=== PATIENT | male | born 1990 | race Caucasian/White ===

== ENCOUNTER 2019-11-04 08:59 | Emergency (ER) | payer OTHER ==
[2019-11-04] MEDS ORDERED: ONDANSETRON 4 MG/2 ML VIAL IVP STA (09:07)
[2019-11-04] MEDS ORDERED: MORPHINE SULFATE 4 MG/ML SYRINGE IVP STA (09:07)
[2019-11-04 09:11] VITALS: TEMP 98.1
--- NOTE | 2019-11-04 09:13 | ED ---
Fall HPI <Homero Prince - Last Filed: 11/04/19 10:24> - General Source: patient, EMS Mode of arrival: EMS Limitations: physical limitation <Cleve Marques - Last Filed: 11/04/19 10:29> - General Stated Complaint: IHS-FALL Time Seen by Provider: 11/04/19 09:00 - History of Present Illness Initial Comments: This a 29-year-old male presents emergency from via EMS chief complaint of fall. Patient states he is on a ladder attempting to go onto a roof. Patient states that he works for [employer] service company states that the legs of the lateral slid out off the neck causing him to fall on his hands, knee, feet region. Patient states that he has bilateral wrists pain right greater than left and also left ankle pain. Patient had no head injury no loss conscious denies neck, back, abdominal, hip pain. Patient had no prior fractures he is [id number]. Patient was given Toradol by EMS which she states slightly helped his discomfort. (Cleve Marques) - Related Data Allergies Allergy/AdvReac Type Severity Reaction Status Date / Time No Known Allergies Allergy Verified 11/04/19 09:12 Review of Systems ROS Other: All systems not noted in ROS Statement are negative. <Homero Prince - Last Filed: 11/04/19 10:24> ROS Other: All systems not noted in ROS Statement are negative. <Cleve Marques - Last Filed: 11/04/19 10:29> ROS Statement: Those systems with pertinent positive or pertinent negative responses have been documented in the HPI. Past Medical History Past Medical History: No Reported History <Homero Prince - Last Filed: 11/04/19 10:24> General Exam General appearance: alert, in no apparent distress Head exam: Present: atraumatic, normocephalic, normal inspection Eye exam: Present: normal appearance, PERRL, EOMI. Absent: scleral icterus, conjunctival injection, periorbital swelling ENT exam: Present: normal exam, normal oropharynx, mucous membranes moist Neck exam: Present: normal inspection, full ROM. Absent: tenderness, meningismus, lymphadenopathy Respiratory exam: Present: normal lung sounds bilaterally. Absent: respiratory distress, wheezes, rales, rhonchi, stridor Cardiovascular Exam: Present: regular rate, normal rhythm, normal heart sounds. Absent: systolic murmur, diastolic murmur, rubs, gallop, clicks GI/Abdominal exam: Present: soft, normal bowel sounds. Absent: distended, tenderness, guarding, rebound, rigid Extremities exam: Present: other (Right wrist there is an obvious deformity, tenderness with palpation neurovascular intact there is no proximal forearm tenderness no tenderness of the hand. Left wrist there is a small area of swelling over the distal radial region this is tender with palpation, no hand tenderness no proximal forearm or arm tenderness. Left ankle there is mild swelling the lateral malleoli region minimal tenderness neurovascular intact no foot tenderness no proximal tib-fib tenderness) Back exam: Present: full ROM. Absent: tenderness, paraspinal tenderness, vertebral tenderness Neurological exam: Present: alert, oriented X3, CN II-XII intact, reflexes normal. Absent: motor sensory deficit Skin exam: Present: warm, dry, intact, normal color. Absent: rash <Cleve Marques - Last Filed: 11/04/19 10:29> Course <Cleve Marques - Last Filed: 11/04/19 10:29> Vital Signs 11/04/19 11/04/19 11/04/19 09:03 10:00 10:05 Temperature 98.1 F Pulse Rate 103 H 100 100 Respiratory 18 18 16 Rate Blood Pressure 149/118 140/115 145/103 O2 Sat by Pulse 98 96 100 Oximetry 11/04/19 11/04/19 11/04/19 10:10 10:15 10:20 Temperature Pulse Rate 94 97 101 H Respiratory 18 18 18 Rate Blood Pressure 137/101 141/92 122/88 O2 Sat by Pulse 100 100 99 Oximetry 11/04/19 10:25 Temperature Pulse Rate 98 Respiratory 18 Rate Blood Pressure 120/91 O2 Sat by Pulse 99 Oximetry - Reevaluation(s) Reevaluation #1: 11/04/19 09:57 I did discuss case with Dr. Haas on-call orthopedics. He did recommend traction, reduction of the right wrist with a well-padded splint and follow-up in office. (Cleve Marques) Procedures - Orthopedic Fracture Reduction Fracture #1 Consent Obtained: verbal consent Side: right Fracture Reduction Location: radius Analgesia: procedural sedation Technique: direct manipulation Post Reduction X-rays Demonstrate: acceptable reduction Post-Reduction Neuro Exam: intact Post-Reduction Vascular Exam: intact Splint Applied: Yes Patient Tolerated Procedure: well, no complications - Procedural Sedation Procedural Sedation Start Time: 10:00 Procedural Sedation Stop Time: 10:25 Indications: fracture/dislocation reduction ASA Class: I Mallampati Airway Score: 2 Preparation: leather cartridge belt maker applied, pulse oximeter, capnometry used, supplemental O2 applied IV Etomidate Dose (mgs): 60 Complications: none Patient Tolerated Procedure: well, no complications <Homero Prince - Last Filed: 11/04/19 10:24> - Orthopedic Splinting/Casting Injury #1 Side: right Upper Extremity Injury Location: short arm, wrist Upper Extremity Immobilizer: volar splint, synthetic pre-padded splint Injury #2 Side: left Upper Extremity Injury Location: short arm, wrist Upper Extremity Immobilizer: volar splint, synthetic pre-padded splint <Cleve Marques - Last Filed: 11/04/19 10:29> Medical Decision Making <Homero Prince - Last Filed: 11/04/19 10:24> <Cleve Marques - Last Filed: 11/04/19 10:29> - Medical Decision Making Patient was reexamined and reevaluated by myself, Dr. Prince. History and physical done. Patient consents to sedation and reduction. Procedure performed. X-rays reviewed. (Homero Prince) Patient presented from for fall, x-rays of the wrist show bilateral wrist fractures, and the right was reduced in emergency department the case discussed with Dr. Haas. Patient will follow-up in office on Wednesday. Return parameters discussed. (Cleve Marques) Disposition <Homero Prince - Last Filed: 11/04/19 10:24> Is patient prescribed a controlled substance at d/c from ED?: No Time of Disposition: : <Cleve Marques - Last Filed: 11/04/19 10:29> Clinical Impression: Fall, Closed fracture of distal end of right radius, Closed fracture of left distal radius, Left ankle sprain Disposition: HOME SELF-CARE Condition: Stable Additional Instructions: Please return to the Emergency Department if symptoms worsen or any other concerns. Referrals: Antonio Haas MD [STAFF PHYSICIAN] - 1-2 days
--- NOTE | 2019-11-04 09:51 | XR ---
EXAMINATION TYPE: XR ankle complete LT , 3 VIEWS DATE OF EXAM ORDERED: 11/04/2019 HISTORY: fall off ladder, pain. COMPARISON: None. FINDINGS: No fracture, dislocation or other acute osseous lesion is seen. There are both plantar and Achilles calcaneal spurs. IMPRESSION: 1. NO ACUTE OSSEOUS LESION. 2. CALCANEAL SPURS.
--- NOTE | 2019-11-04 09:57 | XR ---
EXAMINATION TYPE: XR wrist complete BILATERAL , 8 VIEWS DATE OF EXAM ORDERED: 11/04/2019 HISTORY: fall off ladder, pain. COMPARISON: None. FINDINGS: On the right there is a comminuted intra-articular fracture of the distal radius. There is truncation of the ulnar styloid on the right. There is some amorphous calcification adjacent to the styloid. I could not exclude a styloid fracture. There is some calcification of the triangular fibroc artilage. On the left there is a comminuted intra-articular fracture distal radius no definite ulnar fracture i s seen. IMPRESSION: BILATERAL, COMMINUTED INTRA-ARTICULAR FRACTURES OF THE DISTAL RADII WITH A QUESTIONABLE FRACTURE OF T HE RIGHT ULNAR STYLOID. CODE A: INITIAL ENCOUNTER FOR CLOSED FRACTURE.
[2019-11-04] MEDS: ETOMIDATE 2 MG/ML 10 ML VIAL IV STA ×2 (10:03→10:04)
[2019-11-04 10:12] VITALS: RESP 18
[2019-11-04] MEDS ORDERED: ACET/COD 300 MG/30 MG STARTER PACK 6 TAB BTL PO STA (10:29)
--- NOTE | 2019-11-04 10:40 | XR ---
EXAMINATION TYPE: XR wrist limited RT , 2 VIEWS DATE OF EXAM ORDERED: 11/04/2019 HISTORY: Postreduction. COMPARISON: Previous study of earlier today. FINDINGS: There has been a reduction of the distal right radial fracture and the arm is immobilized in a fiberglass lap. On this study the ulnar styloid fracture is more clearly evident. There continue s to be a small step in the radiocarpal articulation there continues to be mild to moderate displacem ent of the medial radial fragment. IMPRESSION: PARTIAL REDUCTION OF THE PATIENT'S RADIAL AND ULNAR FRACTURES.
[2019-11-04 10:58] VITALS: BP 132/98; PULSE 99
== END 2019-11-04 11:07 | disposition home or self-care (01) ==
LOC: EC 08:59
DX: S52.501A Unspecified fracture of the lower end of right radius, initial encounter for closed fracture (principal); S93.402A Sprain of unspecified ligament of left ankle, initial encounter; S52.502A Unspecified fracture of the lower end of left radius, initial encounter for closed fracture; Z53.8 Procedure and treatment not carried out for other reasons; W11.XXXA Fall on and from ladder, initial encounter; Y93.89 Activity, other specified; Y92.69 Other specified industrial and construction area as the place of occurrence of the external cause; Y99.0 Civilian activity done for income or pay
CPT/HCPCS: 73110; 73100; 73610; 99284; 25605; 99152; 99153; 96374; J2270

== ENCOUNTER 2019-11-05 14:32 | Emergency (ER) | payer OTHER ==
[2019-11-05 14:43] VITALS: RESP 18; TEMP 98.1
[2019-11-05] MEDS ORDERED: HYDROcodone/APAP 7.5-325MG 1 EACH TAB PO ONE (14:45)
--- NOTE | 2019-11-05 15:58 | ED ---
Upper Extremity HPI - General Chief Complaint: Extremity Injury, Upper Stated Complaint: wrist pain Time Seen by Provider: 11/05/19 14:44 Source: patient, RN notes reviewed Mode of arrival: ambulatory Limitations: no limitations - History of Present Illness Initial Comments: 29-year-old male presents emergency Department with chief complaint of right ortiz nd pain. Patient seen here yesterday had a fall off a ladder, patient has bilateral wrist fracture. Patient had reduction of the right wrist. Patient states that he was sent home without codeine states is on alleviating of the pain. Patient states he has not been moving his hand which makes it feel achy states that it hurts to move his hand. Patient denies any discoloration. He does move his hand looked swollen. Patient denies any other complaints. - Related Data Allergies Allergy/AdvReac Type Severity Reaction Status Date / Time No Known Allergies Allergy Verified 11/05/19 14:43 Review of Systems ROS Statement: Those systems with pertinent positive or pertinent negative responses have been documented in the HPI. ROS Other: All systems not noted in ROS Statement are negative. Past Medical History Past Medical History: No Reported History History of Any Multi-Drug Resistant Organisms: None Reported Additional Past Surgical History / Comment(s): Eye surgery Past Psychological History: No Psychological Hx Reported Smoking Status: Never smoker Past Alcohol Use History: Occasional Past Drug Use History: Marijuana General Exam Limitations: no limitations General appearance: alert, in no apparent distress Head exam: Present: atraumatic, normocephalic, normal inspection Respiratory exam: Present: normal lung sounds bilaterally. Absent: respiratory distress, wheezes, rales, rhonchi, stridor Cardiovascular Exam: Present: regular rate, normal rhythm, normal heart sounds. Absent: systolic murmur, diastolic murmur, rubs, gallop, clicks Extremities exam: Present: other (There is bilateral's restaurant noted, neurovascular intact Refill less than 2 seconds the right splint was unwrapped secondary swelling and complaint of pain. There is no evidence of compartment syndrome.) Course Vital Signs 11/05/19 14:40 Temperature 98.1 F Pulse Rate 101 H Respiratory 18 Rate Blood Pressure 120/74 O2 Sat by Pulse 98 Oximetry Medical Decision Making - Medical Decision Making Patient presented for recheck secondary to pain. There is no concerns for compartment syndrome. I did loosen the wrap, I did advise him that he is do finger movements or squeeze of ball to help improve the swelling. He'll be provided shoulder pain medication he has an appointment to follow-up tomorrow at orthopedics. Disposition Clinical Impression: Closed fracture of distal end of right radius, Right hand pain Disposition: HOME SELF-CARE Condition: Stable Instructions (If sedation given, give patient instructions): Arm Fracture in Adults (ED) Additional Instructions: Please return to the Emergency Department if symptoms worsen or any other concerns. Is patient prescribed a controlled substance at d/c from ED?: No Referrals: None,Stated [Primary Care Provider] - 1-2 days Antonio Haas MD [STAFF PHYSICIAN] - 1-2 days Time of Disposition: 15:58
[2019-11-05] MEDS ORDERED: MORPHINE SULFATE 4 MG/ML SYRINGE IM STA (16:08)
[2019-11-05 16:14] VITALS: PULSE 104
[2019-11-05 16:35] VITALS: BP 139/94
== END 2019-11-05 16:35 | disposition home or self-care (01) ==
LOC: EC 14:32
DX: S52.501A Unspecified fracture of the lower end of right radius, initial encounter for closed fracture (principal); S62.102A Fracture of unspecified carpal bone, left wrist, initial encounter for closed fracture; W11.XXXA Fall on and from ladder, initial encounter; Y92.69 Other specified industrial and construction area as the place of occurrence of the external cause; Y99.0 Civilian activity done for income or pay
CPT/HCPCS: 99283; 96372; J2270

== ENCOUNTER → 2019-11-06 | Outpatient (CLI) | payer OTHER | END | disposition home or self-care (01) | LOC: LABWHC1 12:44 | PROVIDERS: ATTEND Orthopaedic Surgery | DX: M25.531 Pain in right wrist (principal); S93.402A Sprain of unspecified ligament of left ankle, initial encounter; M25.532 Pain in left wrist; M25.572 Pain in left ankle and joints of left foot; E55.9 Vitamin D deficiency, unspecified | CPT/HCPCS: 36415; 82306 ==

== ENCOUNTER → 2019-11-09 | Outpatient (CLI) | payer OTHER ==
--- NOTE | 2019-11-09 09:32 | CT ---
EXAMINATION TYPE: CT wrist RT wo con DATE OF EXAM: 11/09/2019 COMPARISON: Right wrist x-ray 5 days ago. HISTORY: Pain in right wrist, blasted intra-articular distal radial fracture per order. Traumatic fal l injury [address] DLP: 197 mGycm Automated exposure control for dose reduction was used. FINDINGS: Overlying fiberglass cast material is redemonstrated. There are 3 tiny avulsion type fracture fragmen ts from the ulnar styloid. Minus ulnar variance is present similar to prior x-ray study after reducti on. Distal radius redemonstrates comminuted displaced intra-articular fracture through the radial meta-ep iphysis. There are multiple small fracture fragments extending to articular surface best seen near ax ial image 26 with fracture lines extend to the ulnar radial along with dorsal and palmar surfaces wit h small ossific fracture fragments seen within the fracture spaces.Largest remaining intact articular surface measures 1.6 x 1.5 cm along palmar ulnar aspect axial image 26. Carpal joint spaces are maintained. There is no fracture or dislocation at this level. I do see a few tiny bony fragments near distal radial epiphysis sagittal image 18 and coronal image 22 correspondin g to axial image 26. A few additional tiny fragments near the dorsal aspect of scaphoid bone are pres ent near sagittal image 20. IMPRESSION: Significant comminuted displaced intra-articular fracture distal radial meta-epiphysis as detailed above with disruption of distal radial ulnar joint.
== END | disposition home or self-care (01) ==
LOC: RADCTMAIN 07:43
PROVIDERS: ATTEND Orthopaedic Surgery
DX: S52.571A Other intraarticular fracture of lower end of right radius, initial encounter for closed fracture (principal); M25.572 Pain in left ankle and joints of left foot; S93.402A Sprain of unspecified ligament of left ankle, initial encounter

== ENCOUNTER 2019-11-10 10:59 | Day surgery (SDC) | payer OTHER ==
[2019-11-07 16:14] VITALS: BMI 39.5
[~2019-11-10 10:59] MED LIST: DEXAMETHASONE SOD PHOSPHATE 10 MG/ML 1 ML VIAL IV ONE; HYDROmorphone 0.5 MG/0.5 ML SYRINGE IVP PRN; LACTATED RINGERS 1,000 ML IV SCH; MIDAZOLAM 2 MG/2 ML VIAL IV PRN; ONDANSETRON 4 MG/2 ML VIAL IVP ONE; SCOPOLAMINE 1.5MG/72HR PATCH TRANSDERM ONE
[2019-11-10] MEDS ORDERED: LIDOCAINE 1% 20 ML VIAL (10MG/ML) FOR IV START INTRADERMA ONE (11:34)
[2019-11-10] MEDS ORDERED: fentaNYL (PF) 50 MCG/ML 2 ML AMP IV ONE (12:33)
[2019-11-10] MEDS ORDERED: MIDAZOLAM 2 MG/2 ML VIAL ONE (12:36)
[2019-11-10] MEDS ORDERED: ESMOLOL 100 MG/10 ML VIAL ONE (12:36)
[2019-11-10] MEDS ORDERED: fentaNYL (PF) 50 MCG/ML 2 ML AMP ONE (12:36)
[2019-11-10] MEDS ORDERED: ROCURONIUM BROMIDE 10 MG/ML 10 ML VIAL IV ONE (12:36)
[2019-11-10] MEDS ORDERED: METOPROLOL TARTRATE 5 MG/5 ML VIAL IVP ONE (12:36)
[2019-11-10] MEDS ORDERED: PROPOFOL 10 MG/ML 20 ML VIAL IV ONE (12:36)
[2019-11-10] MEDS ORDERED: ROPIVACAINE 5 MG/ML 30 ML VIAL ONE (12:36)
[2019-11-10] MEDS ORDERED: LIDOCAINE 1% INJ 10MG/ML (20 ML MDV) ONE (12:36)
[2019-11-10] MEDS ORDERED: SUCCINYLCHOLINE CHLORIDE 100 MG/5 ML SYR IV ONE (12:36)
--- NOTE | 2019-11-10 13:34 | P.ANPRN ---
Procedure Note - Anesthesia - Nerve Block Performed Right Supraclavicular Single Time Out Performed: Yes (1232) Date of Procedure: 11/10/19 Procedure Start Time: 12:32 Procedure Stop Time: 12:46 Location of Patient: PreOp Indication: Acute Post-Operative Pain, Requested by Surgeon Specifically requested for management of pain by : Ken Stover Sedation Type: Sedate with meaningful contact maintained Preparation: Sterile Prep Position: Supine Catheter: None Needle Types: Pajunk Needle Gauge: 21 Ultrasound used to visualize needle placement: Yes Ultrasound used to observe medication spread: Yes Injectate: 0.5% Ropivacaine (see comment for volume) (30cc) Blood Aspirated: No Pain Paresthesia on Injection Noted: No Resistance on Injection: Normal Image Stored and Saved: Yes Events: Uneventful and Well Tolerated
[2019-11-10] MEDS ORDERED: BUPIVACAINE (PF) 0.5% 30 ML VIAL SQ ONE (16:33)
[2019-11-10] MEDS ORDERED: LIDOCAINE 1%-EPI 1:100,000 20 ML VIAL SQ ONE (16:33)
[2019-11-10] MEDS ORDERED: LACTATED RINGERS 1,000 ML IV ONE ×2 (17:00→17:59)
[2019-11-10] MEDS ORDERED: SODIUM CHLORIDE 0.9% 50 ML with ceFAZolin 2,000 MG IV ONE ×2 (17:17)
[2019-11-10] MEDS ORDERED: ONDANSETRON 4 MG/2 ML VIAL IVP ONE (19:31)
[2019-11-10] MEDS ORDERED: METOCLOPRAMIDE 5 MG/ML 2 ML VIAL IVP ONE (19:40)
[2019-11-10] MEDS ORDERED: PROMETHAZINE INJ 25 MG/ML 1 ML VIAL IVPB ONE (19:48)
[2019-11-10] MEDS ORDERED: LABETALOL 5 MG/ML VIAL MDV IV ONE (20:00)
[2019-11-10] MEDS ORDERED: HYDROmorphone 0.5 MG/0.5 ML SYRINGE IVP ONE (20:01)
[2019-11-10] MEDS ORDERED: hydrALAZINE HCL 20 MG/ML 1 ML VIAL IV ONE (20:08)
[2019-11-10] MEDS: HYDROmorphone 1 MG/ML 1 ML SYRINGE IVP ONE ×2 (20:23→20:33)
[2019-11-11] MEDS ORDERED: HYDROcodone/APAP 7.5-325MG 1 EACH TAB PO PRN (00:02)
[2019-11-11] MEDS: HYDROmorphone 1 MG/ML 1 ML SYRINGE IVP PRN ×2 (01:39→05:28)
[2019-11-11 03:55] VITALS: TEMP 98.3
[2019-11-11 04:25] VITALS: BP 131/75; PULSE 121; RESP 14
--- NOTE | 2019-11-11 20:57 | XR ---
EXAMINATION TYPE: XR wrist complete BILATERAL, [place] guidance operating room DATE OF EXAM: 11/10/2019 COMPARISON: 11/04/2019 HISTORY: 29-year-old male ORIF bilateral distal radial fractures. FINDINGS: Intraoperative fluoroscopy during a lateral distal radial internal fixation with plate and screws on the right and cannulated 3 screws on the left. FLUOROSCOPY Fluoroscopy time of 4 minutes 6 seconds seconds was used during bilateral distal radial ORIF. 10 brown ge/s document/s the procedure. IMPRESSION: Intraoperative fluoroscopy as above.
--- NOTE | 2019-11-13 07:34 | P.OP ---
Date of Procedure: 11/10/19 Preoperative Diagnosis: 1. Displaced intra-articular bilateral distal radius fractures 2. Post-traumatic right carpal tunnel syndrome Postoperative Diagnosis: 1. Displaced intra-articular bilateral distal radius fractures 2. Post-traumatic right carpal tunnel syndrome Procedure(s) Performed: 1. Open reduction and internal fixation of comminuted, intra-articular right distal radius fracture (greater than 3 parts) 2. Open right carpal tunnel release 3. Open reduction and internal fixation of intra-articular left distal radius fracture (greater than 3 parts) Implants: Right: Acumed AcuLoc 2 right standard volar distal radius plate with locking and cortical screws Left: Three Acutrak 2 headless compression screws (2 standard and 1 mini) Anesthesia: TAINA, regional Surgeon: Ken Stover Sales Administration Manager #1: Korina No Estimated Blood Loss (ml): 40 Condition: stable Disposition: PACU Indications for Procedure: The patient is a 29-year-old male who sustained bilateral distal radius after falling from a ladder at work. Treatment options (and their associated risks and benefits) were discussed. The right fracture was markedly displaced, neccessitating operative treatment. While there was some displacement of the left fracture, surgical stabilization was recommended in the setting of bilateral fractures. Additionally, the patient was experiencing paresthesias in the fingers on the right. Carpal tunnel release at the time of fracture fixation was recommended. In preop, additional questions were addressed and the patient wished to proceed with surgery. Consent forms were signed. The operative sites were confirmed and marked. Description of Procedure: The patient was administered a regional nerve block (only on the right) by the anesthesia team and then was brought to the operating suite. He was positioned supine with the right arm on an arm board. All bony prominences were well- padded. Anesthesia and prophylactic IV antibiotics were administered uneventfully. A tourniquet was applied. The right upper extremity was prepped and draped in standard, sterile fashion. A timeout was performed, confirming patient identifiers, the operative side, the sites and the procedures to be performed: all team members expressed agreement. The limb was exsanguinated with an Esmarch and the tourniquet was inflated. Loupe magnification was utilized throughout the case for optimum visualization. An extended carpal tunnel approach was utilized. A midline volar incision was marked, extending obliquely across the volar wrist crease. The skin was incised sharply and subcutaneous tissue were spread. The antebrachial/volar carpal fascia was incised longitudinally. The median nerve was identified. The transverse carpal ligament was sharply released under direct visualization. This was noted to be substantially thickened and the tunnel was very tight. Wide release was achieved. The interval between the ulnar neurovascular bundle and the flexor tendons was bluntly developed. The flexor musculature was moderately edematous. The pronator quadratus was identified. There was a large traumatic transverse rent in the muscle belly with a fracture fragment protruding through it. This was sharply extended along its ulnar border and the muscle was subperiosteally elevated radially. The transitional fiber zone was elevated as well to expose the fracture site. There was a large fragment involving the volar lunate fossa and metaphysis of the intermediate column. There were two small articular fragments radial to this, with very distal fracture lines. The radial styloid was substantially comminuted. A Silver Star was inserted into the metaphyseal fracture. This was cleaned of hematoma and fibrous tissue. The fragment was mobilized, reduced and held with a reduction clamp. Attempted reduction of the radial column proved difficult from this exposure, due to the amount of edema and the patients muscular forearm. Through the same incision, the interval between the FCR and radial artery was developed. The FCR sheath was incised and the tendon was mobilized. The floor of the sheath was released. Perforating vessels were coagulated with bipolar cautery. Finger dissection was used to expose the fracture site. A large pointed reduction clamp was applied to the bone below the sigmoid notch and clamped percutaneously to the larger fragment of the radial styloid. The plate was selected and positioned on the volar radius. It was provisionally pinned in place with K-wires and its position was confirmed on imaging. A cortical screw was drilled, measured and inserted into the oblong hole of the shaft. Residual shortening and dorsal angulation were present, as well as a small articular incongruity. The distal K wires were removed. Using the plate as a reduction tool, the fracture was remanipulated. A Silver Star was inserted between the fracture fragments to elevate the articular surface and the K wires were reinserted. Repeat imaging demonstrated improved alignment in all planes. Distal locking screws were sequentially drilled, measured and inserted, confirming length and trajectory with imaging. An additional cortical screw was drilled and inserted to secure the plate to the shaft proximally. Final x-rays were obtained, which revealed satisfactory reduction of the fracture. The wrist was then ranged under live fluoroscopy - no motion of the fracture fragments or fixation construct was appreciated. The wrist articulated smoothly in flexion, extension and rotation, without clicking or crepitus. The tourniquet was released after 121 minutes at 250 mmHg and was not used for the remainder of the case. Good hemostasis was obtained with manual pressure and electrocautery. The wound was thoroughly irrigated with normal saline. The pronator and tra nsitional fibers were repaired over the plate with interrupted 2-0 Vicryl sutures. The subcutaneous tissues were reapproximated with interrupted 3-0 Vicryl sutures. The incision was closed with interrupted 3-0 and 4-0 nylon sutures. Local anesthetic with epinephrine was injected into the perioperative subcutaneous tissues for adjunctive postoperative pain control and hemostasis. Soft, sterile dressing was applied. Attention was then turned to the left distal radius. The patient was repositioned with the left arm on an arm board. A tourniquet was applied and the left upper extremity was prepped and draped in sterile fashion. The timeout was repeated to confirm the procedure and surgical plan: Unanimous agreement was again confirmed. The limb was exsanguinated with an Esmarch the tourniquet was inflated. The fracture on the left was a long vertical split extending from the articular surface into the metadiaphysis. There was also a small separate radial styloid fragment. There also appeared to be a separate longitudinal fracture in the coronal plane, seen on the lateral view. On the PA view, a small amount of diastasis was noted between the fragments at the articular surface. A small longitudinal incision was made over the fifth dorsal compartment. Spreading dissection proceeded down to the extensor retinaculum and a small longitudinal split was made. The extensor tendons were mobilized and protected. The dorsal ulnar corner of the distal radius was visualized. A large pointed reduction clamp was inserted and positioned below the sigmoid notch (confirmed on imaging). This was applied to the base of the radial styloid through a small incision. Good compression at the fracture site was noted on imaging. The decision was made to proceed with screw fixation. Two small incisions were made along the radial styloid. Spreading dissection was used to expose the bone. Several small vessels and sensory nerve branches were identified. In order to adequately mobilize and protect the structures, the skin bridge between the two wounds was incised to create one exposure. Two guidewires for the headless compression screws were drilled across the fracture, confirming length and trajectory on imaging. The cannulated drill was inserted over the wires and the length was measured. Two standard Acutrak screws were inserted and buried just below the cortical surface. Good purchase was achieved. To provide better compression distally, a guidewire for a mini screw was inserted into the radial styloid fragment and advanced across the vertical split, to the edge of the sigmoid notch. Cannulated drill was again used, checking depth of insertion on imaging. Measuring off the drill, a mini headless compression screw was inserted. The clamp and guidewires were removed. Final images were obtained, which demonstrated good reduction of the fractures. No fracture line was appreciated on the lateral view. The wrist was stressed under live fluoroscopy: There was no appreciable motion at the fracture sites. The wrist articulated smoothly without clicking, popping or crepitus. The wounds were thoroughly irrigated with normal saline. The split in the extensor retinaculum was repaired with 3-0 Vicryl suture. The tourniquet was released after 67 minutes at 250 mmHg. Excellent hemostasis was obtained with manual pressure and electrocautery. The subcutaneous tissues were reapproximated with interrupted 3-0 Vicryl sutures. The dorsal incision was closed with interrupted subcuticular 4-0 Monocryl. The radial incision was closed with a running 4-0 Monocryl subcuticular stitch. Steri-Strips and sterile dressings were applied, followed by a volar plaster short arm splint. A volar plaster splint was also applied to the right wrist as well. All sponge, needle and instrument counts were correct at the end of the case. The patient tolerated the procedure well and was taken to the recovery room in stable condition.
== END 2019-11-11 07:55 ==
LOC: OR 10:59 → 4SSUR 20:32 → OR 11-11 07:55
PROVIDERS: ATTEND Orthopaedic Surgery
DX: S52.571A Other intraarticular fracture of lower end of right radius, initial encounter for closed fracture (principal); S52.572A Other intraarticular fracture of lower end of left radius, initial encounter for closed fracture; G56.01 Carpal tunnel syndrome, right upper limb; S93.402A Sprain of unspecified ligament of left ankle, initial encounter; W11.XXXA Fall on and from ladder, initial encounter; Y92.69 Other specified industrial and construction area as the place of occurrence of the external cause; Y99.0 Civilian activity done for income or pay; Z79.891 Long term (current) use of opiate analgesic
CPT/HCPCS: 64415; 76942; 73110; 25609; 64721; C1713; J2250; J0360; J1100; J2550; J2765; J0690 ×2; J2405; J2001; J3010; J1170 ×3; J2795; J0330; J2704

== ENCOUNTER 2021-01-14 09:11 | Emergency (ER) | payer OTHER ==
[2021-01-14 09:45] VITALS: BP 125/79; PULSE 95; RESP 18; TEMP 97.9
[2021-01-14] MEDS ORDERED: KETOROLAC 15 MG/ML 1 ML VIAL IM STA (10:48)
[2021-01-14] MEDS ORDERED: ORPHENADRINE 30 MG/ML 2 ML VIAL IM STA (10:48)
[2021-01-14] MEDS ORDERED: HYDROmorphone 1 MG/ML 1 ML SYRINGE IVP STA (11:46)
[2021-01-14] MEDS ORDERED: ACET/COD 300 MG/30 MG STARTER PACK 6 TAB BTL PO STA (12:40)
--- NOTE | 2021-01-14 12:41 | ED ---
General Adult HPI - General Chief complaint: Back Pain/Injury Stated complaint: Back Pain Source: patient, family Mode of arrival: ambulatory Limitations: no limitations - History of Present Illness Initial comments: 30-year-old male with a past medical history of asthma presents to the emergency room for a chief complaint of neck pain. Patient presents for back pain 5 days. Please send states this started when he was at work. States he works for [employer] and was lifting heavy objects. Patient states it is not to be getting better. Patient has been taking Motrin and Tylenol without relief. Patient reports he did have a CAT scan done at another facility which was unremarkable. Patient denies any bladder or bowel changes, weakness of the lower extremities, numbness or tingling of the lower extremities, saddle anesthesia, or fevers. - Related Data Home Medications Medication Instructions Recorded Confirmed No Known Home Medications 01/14/21 01/14/21 Allergies Allergy/AdvReac Type Severity Reaction Status Date / Time No Known Allergies Allergy Verified 01/14/21 11:22 Review of Systems ROS Statement: Those systems with pertinent positive or pertinent negative responses have been documented in the HPI. ROS Other: All systems not noted in ROS Statement are negative. Past Medical History Past Medical History: Asthma Additional Past Medical History / Comment(s): li fx wrists-both splinted-fell with ladder on 11-04-19 History of Any Multi-Drug Resistant Organisms: None Reported Additional Past Surgical History / Comment(s): Eye surgery-age 4 or 5, wrist fx Past Anesthesia/Blood Transfusion Reactions: No Reported Reaction Additional Past Anesthesia/Blood Transfusion Reaction / Comment(s): no hx blood transfusion Past Psychological History: No Psychological Hx Reported Smoking Status: Never smoker Past Alcohol Use History: Occasional Past Drug Use History: Marijuana - Past Family History Mother Family Medical History: No Reported History General Exam Limitations: no limitations General appearance: alert, in no apparent distress Head exam: Present: atraumatic, normocephalic, normal inspection Eye exam: Present: normal appearance, PERRL, EOMI. Absent: scleral icterus, co njunctival injection, periorbital swelling ENT exam: Present: normal exam, mucous membranes moist Neck exam: Present: normal inspection, full ROM. Absent: tenderness, meningismus, lymphadenopathy Respiratory exam: Present: normal lung sounds bilaterally. Absent: respiratory distress, wheezes, rales, rhonchi, stridor Cardiovascular Exam: Present: regular rate, normal rhythm, normal heart sounds. Absent: systolic murmur, diastolic murmur, rubs, gallop, clicks GI/Abdominal exam: Present: soft, normal bowel sounds. Absent: distended, tenderness, guarding, rebound, rigid Extremities exam: Present: normal capillary refill (cap Refill less than 2 seconds in the lower extremities, DP pulse 2+.) Back exam: Present: paraspinal tenderness (Right and left-sided lower lumbar paraspinal tenderness). Absent: vertebral tenderness Neurological exam: Present: alert Course Vital Signs 01/14/21 09:42 Temperature 97.9 F Pulse Rate 95 Respiratory 18 Rate Blood Pressure 125/79 O2 Sat by Pulse 96 Oximetry Medical Decision Making - Medical Decision Making Vitals are stable. HPI physical exam as documented. Pain is mechanical in nature, worsens with movement especially walking. Patient was given Toradol and Norflex with minimal relief. He was given Dilaudid which did help with his symptoms. At this time patient is stable for discharge, will be referred to orthopedic associates. Will return here for any worsening symptoms. Disposition Clinical Impression: Mechanical back pain Disposition: HOME SELF-CARE Condition: Good Instructions (If sedation given, give patient instructions): Acute Low Back Pain (ED) Additional Instructions: Please take Motrin and Tylenol for pain. He may alternate these every 3 hours. Take Tylenol 3 if pain is severe. Take Flexeril throughout the day as needed. He cannot drive or operate machinery while taking Flexeril or Tylenol 3. Follow up with orthopedics. If you have worsening symptoms such as worsening pain, bladder or bowel changes, weakness of the legs, or saddle anesthesia return to the emergency room. Is patient prescribed a controlled substance at d/c from ED?: No Referrals: Erin Guzman DO [Doctor of Osteopathic Medicine] - 1-2 days Time of Disposition: 12:39
== END 2021-01-14 13:11 | disposition home or self-care (01) ==
LOC: EC 09:11
DX: M54.9 Dorsalgia, unspecified (principal)
CPT/HCPCS: 99283; 96374; 96372 ×2; J2360; J1170; J1885